=== PATIENT | male | born 1990 | race Caucasian/White ===

== ENCOUNTER 2016-10-31 18:43 | Emergency (ER) | payer BC, OTHER ==
[2016-10-31 19:12] VITALS: BP 159/96
[2016-10-31 20:08] LABS: Hematocrit 48 % (42-52); Hemoglobin 16.1 g/dl (14.0-18.0); Mean Corpuscular HGB Conc 34 g/dl (31-36); Mean Corpuscular Hemoglobin 30 pg (27-31); Mean Corpuscular Volume 90 fL (80-94); Mean Platelet Volume 9 um3 (7.4-10.4); Red Blood Count 5.32 10^6/ul (4.0-5.4); Red Cell Distribution Width 13 % (10.5-15); White Blood Count 13.7 10^3/ul (3.5-10.8)
[2016-10-31] MEDS ORDERED: Al Hydrox/Mg Hydrox/Simet LIQ* 30 ML UDC PO ONE ×2 (20:20→21:23)
[2016-10-31] MEDS ORDERED: Ondansetron INJ* 2 MG/ML VIAL IV ONE (20:20)
[2016-10-31] MEDS ORDERED: Lidocaine 2% VISCOUS* 15 ML UDC PO ONE ×2 (20:20→21:23)
[2016-10-31 20:25] LABS: ALT 78 U/L (7-52); AST 27 U/L (13-39); Alkaline Phosphatase 53 U/L (34-104); Amylase 26 U/L (29-103); Anion Gap 8 mmol/L (2-11); BUN/Creatinine Ratio 20.4 (8-20); Blood Urea Nitrogen 19 mg/dL (6-24); C Reactive Protein 11.81 mg/L (< 5.00); CO2 Carbon Dioxide 29 mmol/L (22-32); Calcium 10.3 mg/dL (8.6-10.3); Chloride 98 mmol/L (101-111); EGFR African American 126.3 (>60); EGFR Non-African American 98.2 (>60); Globulin 3.1 g/dL (2-4); Glucose 102 mg/dL (70-100); Lipase < 10 U/L (11.0-82.0); Potassium 3.8 mmol/L (3.5-5.0); Sodium 135 mmol/L (133-145); Total Protein 8.1 g/dL (6.4-8.9)
[2016-10-31] MEDS ORDERED: NS 0.9% 1000 ML* 2,000 ML IV SCH (20:30)
--- NOTE | 2016-10-31 21:21 | ED ---
Abdominal Pain/Male - HPI Summary HPI Summary: 25 y/o male with h/o several weeks ago vomiting, abdominal pain radiating into sterum lasting 2 days. states symtpoms started again last night around 6PM, severe upper abdominal pain radiating into sternum, no jaw/ L arm pain, chest pain, pain with dep breath over epigastric region, + vomiting multiple times with yellow, phelmg vomiting, only drinking water, + dizziness episodes intermittently, regular BMs no lower abdominal pain, no association with the pain and eating. no fever, chills, no ill sensation. - History of Current Complaint Chief Complaint: EDAbdPain Stated Complaint: VOMITING,CHEST DISCOMFORT Hx Obtained From: Patient Timing: Constant, Lasting Days Severity Initially: Moderate Severity Currently: Moderate Pain Intensity: 4 Pain Scale Used: 0-10 Numeric - Allergies/Home Medications Allergies/Adverse Reactions: Allergies Allergy/AdvReac Type Severity Reaction Status Date / Time No Known Allergies Allergy Verified 12/07/15 10:42 PMH/Surg Hx/FS Hx/Imm Hx Previously Healthy: Yes - Surgical History Surgery Procedure, Year, and Place: left knee acl meniscus replace Infectious Disease History: No Infectious Disease History: Denies: History Other Infectious Disease, Traveled Outside the [place] in Last 30 Days - Social History Alcohol Use: Occasionally Substance Use Type: Reports: None Smoking Status (MU): Never Smoked Tobacco Review of Systems Positive: Fatigue Eyes: Negative ENT: Negative Cardiovascular: Negative Respiratory: Negative Positive: Abdominal Pain, Vomiting, Nausea Genitourinary: Negative Musculoskeletal: Negative Skin: Negative Neurological: Negative Psychological: Normal All Other Systems Reviewed And Are Negative: Yes Physical Exam Triage Information Reviewed: Yes Vital Signs On Initial Exam: Initial Vitals Temp Pulse Resp BP Pulse Ox 97.7 F 88 16 159/96 98 10/31/16 19:09 10/31/16 19:09 10/31/16 19:09 10/31/16 19:09 10/31/16 19:09 Vital Signs Reviewed: Yes Appearance: Positive: Well-Appearing, No Pain Distress, Well-Nourished Skin: Positive: Warm, Skin Color Reflects Adequate Perfusion Eyes: Positive: EOMI Respiratory/Lung Sounds: Positive: Clear to Auscultation, Breath Sounds Present , Decreased Breath Sounds Cardiovascular: Positive: Normal, RRR Abdomen Description: Positive: No Organomegaly, Soft, Other: - epigastric tenderness with moderate plpation, negative jordan sign, no lower abdominal tenderness or gerhard-umbilical tenderness, NABS x 4, no organomegaly. Bowel Sounds: Positive: Present Musculoskeletal: Positive: Normal, Strength/ROM Intact Neurological: Positive: Normal, Sensory/Motor Intact, Alert, Oriented to Person Place, Time, CN Intact II-III Psychiatric: Positive: Normal AVPU Assessment: Alert - [place] Coma Scale Coma Scale Total: 15 Diagnostics - Vital Signs Vital Signs Temp Pulse Resp BP Pulse Ox 10/31/16 19:09 97.7 F 88 16 159/96 98 - Laboratory Lab Results: Lab Results 10/31/16 10/31/16 Range/Units 20:00 20:00 WBC 13.7 H (3.5-10.8) 10^3/ul RBC 5.32 (4.0-5.4) 10^6/ul Hgb 16.1 (14.0-18.0) g/dl Hct 48 (42-52) % MCV 90 (80-94) fL MCH 30 (27-31) pg MCHC 34 (31-36) g/dl RDW 13 (10.5-15) % Plt Count 237 (150-450) 10^3/ul MPV 9 (7.4-10.4) um3 Neut % (Auto) 82.2 (38-83) % Lymph % (Auto) 8.4 L (25-47) % [place] % (Auto) 8.8 (1-9) % Eos % (Auto) 0.2 (0-6) % Baso % (Auto) 0.4 (0-2) % Absolute Neuts (auto) 11.2 H (1.5-7.7) 10^3/ul Absolute Lymphs (auto) 1.2 (1.0-4.8) 10^3/ul Absolute Monos (auto) 1.2 H (0-0.8) 10^3/ul Absolute Eos (auto) 0 (0-0.6) 10^3/ul Absolute Basos (auto) 0.1 (0-0.2) 10^3/ul Absolute Nucleated RBC 0 10^3/ul Nucleated RBC % 0 Sodium 135 (133-145) mmol/L Potassium 3.8 (3.5-5.0) mmol/L Chloride 98 L (101-111) mmol/L Carbon Dioxide 29 (22-32) mmol/L Anion Gap 8 (2-11) mmol/L BUN 19 (6-24) mg/dL Creatinine 0.93 (0.67-1.17) mg/dL Est GFR ( Amer) 126.3 (>60) Est GFR (Non-Af Amer) 98.2 (>60) BUN/Creatinine Ratio 20.4 H (8-20) Glucose 102 H (70-100) mg/dL Calcium 10.3 (8.6-10.3) mg/dL Total Bilirubin 0.80 (0.2-1.0) mg/dL AST 27 (13-39) U/L ALT 78 H (7-52) U/L Alkaline Phosphatase 53 (34-104) U/L Troponin I 0.00 (<0.04) ng/mL C-Reactive Protein 11.81 H (< 5.00) mg/L Total Protein 8.1 (6.4-8.9) g/dL Albumin 5.0 (3.2-5.2) g/dL Globulin 3.1 (2-4) g/dL Albumin/Globulin Ratio 1.6 (1-3) Amylase 26 L (29-103) U/L Lipase < 10 L (11.0-82.0) U/L Result Diagrams: 10/31/16 20:00 10/31/16 20:00 Lab Statement: Any lab studies that have been ordered have been reviewed, and results considered in the medical decision making process. Abdominal Pain Fem Course/Dx - Course Course Of Treatment: patients symptoms resolved with GI cocktail and zofran, tolerating crackers and water, no vomiting, feels OK for D/C, follow up with GI , PPI/ H@ amy, zofran at home. - Diagnoses Differential Diagnosis/HQI/PQRI: Abdominal Aortic Aneurysm, Diverticulitis, Gall Bladder Disease Provider Diagnoses: Gastritis Discharge - Discharge Plan Condition: Stable Disposition: HOME Prescriptions: Lansoprazole [Prevacid] 30 mg PO DAILY #30 cap Ondansetron TAB* [Zofran Tab*] 4 mg PO Q6H PRN #20 tab PRN Reason: Nausea Ranitidine HCl 150 mg PO BID #60 cap Sucralfate [Carafate] 1 gm PO BID PRN #10 tab PRN Reason: gerd Patient Education Materials: Gastritis (ED), Diet for Ulcers and Gastritis (ED) Referrals: Vadim Newsome MD [Medical Doctor] - 1 Week (Follow up with technical business analyst within 1 week ) No Primary Care Phys,NOPCP [Primary Care Provider] - Additional Instructions: - Follow up with Driver Retraining Instructor within 1 week for symptoms or sooner if symptoms reoccur - Return to ER with increasing symptoms, vomiting blood, or decreased bowel motions - REturn to ER with fever, chills, nausea/ vomiting - [place] diet, increase fluids - ZOfran for nausea - Prevacid/ Ranitidine to decrease stomach acidity.
[2016-10-31] MEDS ORDERED: Ondansetron ODT TAB* 4 MG PO ONE (21:23)
[2016-10-31] MEDS ORDERED: Famotidine TAB* 20 MG PO ONE (21:23)
== END 2016-10-31 22:36 | disposition home or self-care (01) ==
LOC: ED 18:43
DX: K29.70 Gastritis, unspecified, without bleeding (principal); R11.10 Vomiting, unspecified; R10.9 Unspecified abdominal pain; R07.9 Chest pain, unspecified
CPT/HCPCS: 36415; 80053; 82150; 82272; 83690; 84484; 85025; 86140; 93005; 96374; 99283; A9270-GY; J2405

== ENCOUNTER 2018-10-01 09:08 | Emergency (ER) | payer BC ==
[2018-10-01 09:17] VITALS: BP 156/85
--- NOTE | 2018-10-01 09:32 | UC ---
Ear Complaint HPI - HPI Summary HPI Summary: 27-year-old male comes to clinic today with a chief complaint of right ear pain. He's had some right sided sinusitis pressure and symptoms for more than a week and gradually spread getting more right ear pain. He said some drainage from the right ear. He has not been swimming. Also got some upper respiratory chest congestion. The sputum and rhinorrhea is yellow. When he pushes on the right tragus it increases the pain. He took some fuzy-dhb-pzzouqv medicine which did not help with the chest congestion. - History of Current Complaint Chief Complaint: UCEar Stated Complaint: R EAR PAIN Time Seen by Provider: 10/01/18 09:12 Pain Intensity: 6 - Allergies/Home Medications Allergies/Adverse Reactions: Allergies Allergy/AdvReac Type Severity Reaction Status Date / Time No Known Allergies Allergy Verified 10/01/18 09:17 Home Medications: Home Medications Dm/PE/Acetaminophen/Chlorphenr [Eq Daytime/Nighttime Cold] 1 mis PO ONCE PRN 04/12 [History Confirmed 10/01/18] PMH/Surg Hx/FS Hx/Imm Hx Previously Healthy: Yes - Surgical History Surgical History: Yes Surgery Procedure, Year, and Place: left knee acl meniscus replace - Family History Known Family History: Positive: Non-Contributory - Social History Alcohol Use: None Substance Use Type: Marijuana Smoking Status (MU): Never Smoked Tobacco Review of Systems All Other Systems Reviewed And Are Negative: Yes Constitutional: Positive: Negative Skin: Positive: Negative Eyes: Positive: Negative ENT: Positive: Ear Ache, Nasal Discharge, Sinus Congestion, Sinus Pain/ Tenderness Respiratory: Positive: Cough Cardiovascular: Positive: Negative Gastrointestinal: Positive: Negative Motor: Positive: Negative Neurovascular: Positive: Negative Musculoskeletal: Positive: Negative Neurological: Positive: Negative Psychological: Positive: Negative Is Patient Immunocompromised?: No Physical Exam Triage Information Reviewed: Yes Appearance: Well-Appearing, No Pain Distress, Well-Nourished Vital Signs: Initial Vital Signs Temp 98.6 F 10/01/18 09:13 Pulse 101 10/01/18 09:13 Resp 18 10/01/18 09:13 BP 156/85 10/01/18 09:13 Pulse Ox 95 10/01/18 09:13 Vital Signs Reviewed: Yes Eye Exam: Normal Eyes: Positive: Conjunctiva Clear ENT: Positive: Pharynx normal, Nasal congestion, Other - Left ear exam is normal. The right ear canal is swollen with liquid in the canal. Tender to palpation of the right tragus. The right TM is not reviewed due to the swelling in the ear canal. Neck: Positive: Supple Respiratory: Positive: No respiratory distress, Rhonchi Cardiovascular: Positive: RRR Musculoskeletal Exam: Normal Musculoskeletal: Positive: Strength Intact, ROM Intact Neurological Exam: Normal Neurological: Positive: Alert, Muscle Tone Normal Psychological Exam: Normal Psychological: Positive: Normal Response To Family, Age Appropriate Behavior Skin Exam: Normal Ear Complaint Course/Dx - Differential Dx/Diagnosis Provider Diagnosis: Right otitis externa, Sinusitis Discharge - Sign-Out/Discharge Documenting (check all that apply): Patient Departure All imaging exams completed and their final reports reviewed: No Studies - Discharge Plan Condition: Stable Disposition: HOME Prescriptions: Amoxicillin/Clavulanate TAB* [Augmentin TAB 875*] 875 mg PO BID #20 tab Ofloxacin 0.3% (Ear Drop)* [Floxin 0.3% OTIC.HELEN (Ear Drop)] 5 drop RIGHT EAR BID #1 btl Patient Education Materials: Otitis Externa (ED), Ear Infection (ED) Referrals: [facility] [place] [facility] [Outside] Additional Instructions: FOLLOW UP WITH YOUR DOCTOR IF NOT COMPLETELY IMPROVED. GET RECHECKED FOR ANY WORSENING OF YOUR CONDITION OR QUESTIONS OR CONCERNS. - Billing Disposition and Condition Condition: STABLE Disposition: Home
== END 2018-10-01 09:35 | disposition home or self-care (01) ==
LOC: UCEAST 09:08
DX: H60.91 Unspecified otitis externa, right ear (principal); J32.9 Chronic sinusitis, unspecified; R09.89 Other specified symptoms and signs involving the circulatory and respiratory systems
CPT/HCPCS: 99212; G0463

== ENCOUNTER 2018-11-27 14:58 | Emergency (ER) | payer BC ==
[2018-11-27 15:17] VITALS: BP 155/107
--- NOTE | 2018-11-27 15:41 | UC ---
Abdominal Pain Male HPI - HPI Summary HPI Summary: 27 yo male presents with LLQ pain for the last 4 days with the worst being today. He tells me that he did not have an injury or trauma to the area. For the past 4 days has had some constipation alternating with loose stools. He also feels dizzy at times. He is eating and drinking well and has a good appetite. No recent travel. No recent illness. He denies fever, chills, SOB, chest pain, n/v, or dysuria. - History of Current Complaint Chief Complaint: UCAbdominalPain Stated Complaint: ABD PAIN Time Seen by Provider: 11/27/18 15:41 Hx Obtained From: Patient Onset/Duration: Gradual Onset Severity Initially: Mild Severity Currently: Moderate Pain Intensity: 5 Pain Scale Used: 0-10 Numeric - Allergies/Home Medications Allergies/Adverse Reactions: Allergies Allergy/AdvReac Type Severity Reaction Status Date / Time No Known Allergies Allergy Verified 11/27/18 16:16 Home Medications: Home Medications NK [No Home Medications Reported] 11/27/18 [History Confirmed 11/27/18] PMH/Surg Hx/FS Hx/Imm Hx - Additional Past Medical History Additional PMH: None - Surgical History Surgical History: Yes Surgery Procedure, Year, and Place: left knee acl meniscus repair - Family History Known Family History: Positive: None - Social History Occupation: Employed Full-time Lives: With Family Alcohol Use: None Substance Use Type: Marijuana Smoking Status (MU): Never Smoked Tobacco Review of Systems All Other Systems Reviewed And Are Negative: Yes Constitutional: Positive: Negative Skin: Positive: Negative Respiratory: Positive: Negative Cardiovascular: Positive: Negative Gastrointestinal: Positive: Abdominal Pain, Diarrhea, Other - Constipation Genitourinary: Positive: Negative Neurovascular: Positive: Negative Musculoskeletal: Positive: Negative Psychological: Positive: Negative Physical Exam - Summary Physical Exam Summary: GENERAL: NAD. WDWN. No pain distress. SKIN: No rashes, sores, lesions, or open wounds. HEENT: Head: AT/NC Throat: Posterior oropharynx without exudates, erythema, or tonsillar enlargement. Uvula midline. NECK: Supple. Nontender. No lymphadenopathy. CHEST: CTAB. No r/r/w. No accessory muscle use. Breathing comfortably and in no distress. CV: RRR. Without m/r/g. Pulses intact. Cap refill <2seconds ABDOMEN: Moderate TTP LUQ and near spleen. NTTP LLQ/RLQ/RUQ. Soft. No distention or guarding. No organomegaly. No CVA tenderness. Bowel sounds present NEURO: Alert. PSYCH: Age appropriate behavior. Triage Information Reviewed: Yes Vital Signs: Initial Vital Signs Temp 98.8 F 11/27/18 15:14 Pulse 100 11/27/18 15:14 Resp 18 11/27/18 15:14 BP 155/107 11/27/18 15:14 Pulse Ox 99 11/27/18 15:14 Laboratory Tests 11/27/18 15:31 POC Urine Color Yellow POC Urine Clarity Clear POC Urine pH 6.0 POC Ur Specif [place] 1.010 POC Urine Protein Negative POC Ur Glucose (UA) Negative POC Urine Ketones Negative POC Urine Blood Trace-intact A POC Urine Nitrite Negative POC Urine Bilirubin Negative POC Urine Urobilinogen 0.2 POC U Leukocyte Esteras Negative Vital Signs Reviewed: Yes Abd Pain Male Course/Dx - Course Course Of Treatment: His pain could be related to diverticulitis, but he has no history of this and his pain is located more in the LUQ and not LLQ. I discussed with the pt my findings and suspicions. Advised against a non- contrast CT here at the - while this can show diverticulitis at times, if negative I would recommend further eval at the ED. Given that his pain is not typical of diverticulitis and he has no history of this, I recommended a further evaluation at the ED for optimal scanning and same day labwork. He was agreeable to this and will drive himself. - Differential Dx/Clinical Impression Provider Diagnosis: LUQ pain Discharge - Sign-Out/Discharge Documenting (check all that apply): Patient Departure All imaging exams completed and their final reports reviewed: No Studies - Discharge Plan Condition: Stable Disposition: HOME-RECOMMEND TO ED Referrals: No Primary Care Phys,NOPCP [Primary Care Provider] - Additional Instructions: Please go to the ER for further evaluation of your abdominal pain - Billing Disposition and Condition Condition: STABLE Disposition: Home-Recommend to ED
== END 2018-11-27 15:55 | disposition home health service (06) ==
LOC: UCEAST 14:58
DX: R10.12 Left upper quadrant pain (principal)
CPT/HCPCS: 81003; 99212; G0463

== ENCOUNTER 2018-11-27 16:14 | Emergency (ER) | payer SELFPAY ==
--- NOTE | 2018-11-27 17:12 | ED ---
Abdominal Pain/Male - HPI Summary HPI Summary: A 27 y/o male presents to [facility] with a chief complaint of LLQ abdominal pain since 11/20/18. At triage he rated his pain as a 5/10 in severity. He claims that he has had some constipation and diarrhea, with the diarrhea alleviating his abdominal pain. He describes his diarrhea as a few episodes of loose stool. He claims that he has been eating fine and has no other complaints other than reporting that he was dizzy when driving to work on 11/27/18 and so he came to the ED. Vital signs while in room - HR: 94bpm, O2 Sat: 98, BP: 127/89 - History of Current Complaint Chief Complaint: EDAbdPain Stated Complaint: LEFT SIDE ABD PAIN PER PT Time Seen by Provider: 11/27/18 16:50 Hx Obtained From: Patient Onset/Duration: Lasting Days, Still Present Timing: Constant, Lasting Days Severity Initially: Moderate Severity Currently: Moderate Pain Intensity: 5 Pain Scale Used: 0-10 Numeric Location: Discrete At: LLQ Radiates: No Character: Other: - Unable to describe Aggravating Factor(s): Nothing Alleviating Factor(s): Bowel Movement Associated Signs And Symptoms: Positive: Dizzy, Diarrhea. Negative: Fever - Allergies/Home Medications Allergies/Adverse Reactions: Allergies Allergy/AdvReac Type Severity Reaction Status Date / Time No Known Allergies Allergy Verified 11/27/18 16:16 PMH/Surg Hx/FS Hx/Imm Hx Endocrine/Hematology History: Denies: Hx Diabetes Cardiovascular History: Denies: Hx Hypertension Sensory History: Denies: Hx Deafness - Surgical History Surgery Procedure, Year, and Place: left knee acl meniscus repair Infectious Disease History: No Infectious Disease History: Denies: History Other Infectious Disease, Traveled Outside the [place] in Last 30 Days - Family History Known Family History: Negative: Cardiac Disease, Hypertension, Diabetes - Social History Alcohol Use: None Substance Use Type: Reports: None Smoking Status (MU): Never Smoked Tobacco Review of Systems Negative: Fever Positive: Abdominal Pain, Diarrhea, Other - Positive: constipation Neurological: Other - positive: dizziness All Other Systems Reviewed And Are Negative: Yes Physical Exam - Summary Physical Exam Summary: Appearance: The patient is well-nourished in no acute distress and in no acute pain. Skin: The skin is warm and dry and skin color reflects adequate perfusion. HEENT: The head is normocephalic and atraumatic. The pupils are equal and reactive. The conjunctivae are clear and without drainage. Nares are patent and without drainage. Mouth reveals moist mucous membranes and the throat is without erythema and exudate. The external ears are intact. The ear canals are patent and without drainage. The tympanic membranes are intact. Neck: The neck is supple with full range of motion and non-tender. There are no carotid bruits. There is no neck vein distension. Respiratory: Chest is non-tender. Lungs are clear to auscultation and breath sounds are symmetrical and equal. Cardiovascular: Heart is regular rate and rhythm. There is no murmur or rub auscultated. There is no peripheral edema and pulses are symmetrical and equal. Abdomen: Tender left lower quadrant, no rebound, no guarding. There are normal bowel sounds heard in all four quadrants and there is no organomegaly palpated. Musculoskeletal: There is no back tenderness noted. Extremities are non-tender with full range of motion. There is good capillary refill. There is no peripheral edema or calf tenderness elicited. Neurological: Patient is alert and oriented to person, place and time. The patient has symmetrical motor strength in all four extremities. Cranial nerves are grossly intact. Deep tendon reflexes are symmetrical and equal in all four extremities. Psychiatric: The patient has an appropriate affect and does not exhibit any anxiety or depression. Triage Information Reviewed: Yes Vital Signs On Initial Exam: Initial Vitals Temp Pulse Resp BP Pulse Ox 98.3 F 98 16 152/107 99 11/27/18 16:16 11/27/18 16:16 11/27/18 16:16 11/27/18 16:16 11/27/18 16:16 Vital Signs Reviewed: Yes Diagnostics - Vital Signs Vital Signs Temp Pulse Resp BP Pulse Ox 11/27/18 16:34 102 97 11/27/18 16:33 107 160/106 97 11/27/18 16:16 98.3 F 98 16 152/107 99 - Laboratory Result Diagrams: 11/27/18 17:55 11/27/18 17:55 Lab Statement: Any lab studies that have been ordered have been reviewed, and results considered in the medical decision making process. - CT abdomen/pelvis CT Interpretation Completed By: Radiologist Summary of CT Findings: Findings with epiploic appendagitis of the anterior antimesenteric surface of. the descending colon. No other masses or fluid collections are noted. No obstructive. uropathy is noted. ED physician has reviewed this imaging report. Re-Evaluation - Re-Evaluation First Eval Re-Evaluation Time: 18:01 Change: Improved Comment: Patient is feeling better and will be discharged. Abdominal Pain Male Course/Dx - Course Course Of Treatment: Mr. Gambino presented with a few days of left lower quadrant pain. He has had no change in appetite, nausea or vomiting. He has had a few loose bowel movements but no true diarrhea. He was nontoxic in appearance with stable vital signs. His white count was marginally elevated at 12 and labs otherwise normal. CT scan revealed epiploic appendagitis and he will be treated symptomatically and discharged for follow-up with his PCP. - Diagnoses Provider Diagnoses: Epiploic appendagitis Discharge - Sign-Out/Discharge Documenting (check all that apply): Patient Departure - DC Patient Received Moderate/Deep Sedation with Procedure: No - Discharge Plan Condition: Stable Disposition: HOME Referrals: [facility] [place] [facility] [Outside] (2-3 days) Additional Instructions: Return to the ED if you experience any new or worsening symptoms. - Billing Disposition and Condition Condition: STABLE Disposition: Home - Attestation Statements Document Initiated by Scribe: Yes Documenting Scribe: Antoni Craig Provider For Whom Jody is Documenting (Include Credential): Dre Constantino MD Scribe Attestation: Antoni Gallagher, scribed for Dre Constantino MD on 11/27/18 at 1911. Scribe Documentation Reviewed: Yes Provider Attestation: The documentation as recorded by the Antoni leon accurately reflects the service I personally performed and the decisions made by me, Dre Constantino MD Status of Scribe Document: Viewed
[2018-11-27 18:03] LABS: Hematocrit 49 % (42-52); Hemoglobin 16.6 g/dl (14.0-18.0); Mean Corpuscular HGB Conc 34 g/dl (31-36); Mean Corpuscular Hemoglobin 30 pg (27-31); Mean Corpuscular Volume 89 fL (80-94); Mean Platelet Volume 8.5 fL (7.4-10.4); Platelet Count 272 10^3/ul (150-450); Red Blood Count 5.56 10^6/ul (4.00-5.40); Red Cell Distribution Width 14 % (10.5-15); White Blood Count 12.2 10^3/ul (3.5-10.8)
[2018-11-27 18:08] VITALS: BP 133/96
[2018-11-27 18:21] LABS: Albumin/Globulin Ratio 1.6 (1-3); BUN/Creatinine Ratio 12.5 (8-20); C Reactive Protein 11.08 mg/L (<8.01); Calcium 10.2 mg/dL (8.6-10.3); EGFR African American 124.8 (>60); EGFR Non-African American 103.1 (>60); Globulin 3.2 g/dL (2-4); Potassium 3.9 mmol/L (3.5-5.0); Total Bilirubin 0.6 mg/dL (0.2-1.0); Total Protein 8.2 g/dL (6.4-8.9)
[2018-11-27 18:28] LABS: ABS Basophils 0.1 10^3/ul (0-0.2); ABS Eosinophils 0.1 10^3/ul (0-0.6); ABS Neutrophils 8.9 10^3/ul (1.5-7.7)
[2018-11-27 18:31] LABS: Lymphocytes % 16 %; Monocytes % 5 %; Neutrophil % 74 %; Variant Lymph % 5 % (0-6)
[2018-11-27 18:34] LABS: ABS Neutrophils 9.03 10^3/ul (1.5-7.7)
== END 2018-11-27 18:07 | disposition home or self-care (01) ==
LOC: ED 16:14
DX: K63.89 Other specified diseases of intestine (principal); R10.32 Left lower quadrant pain; R42 Dizziness and giddiness; K59.00 Constipation, unspecified; K31.9 Disease of stomach and duodenum, unspecified
CPT/HCPCS: 36415; 74176; 80053; 83690; 85025; 85060; 86140; 99283